=== PATIENT | female | born 1970 | race Caucasian/White ===

== ENCOUNTER 2017-05-04 13:24 | Emergency (ER) | payer OTHER ==
[~2017-05-04] VITALS: Ht 167.6 cm; Wt 123.4 kg
[~2017-05-04 13:24] MED LIST: COLACE100 MG PO; COZAAR25 MG PO; DICLOFENAC SODI75 MG PO; DICLOFENAC SODIUM; GLUCOPHAGE XR500 MG PO; HYDROCHLOROTH12.5 MG; HYDROCHLOROTHIA25 MG PO; MAGNESIUM OXID400 MG PO; METFORMIN HCL500 MG PO; PERCOCET 5-3251 EACH PO; TRAMADOL HCL50 MG PO
[2017-05-04] MEDS ORDERED: BUPROPION XL300 MG PO (13:46)
[2017-05-04] MEDS ORDERED: GLUCOPHAGE500 MG PO (13:47)
[2017-05-04] MEDS ORDERED: ACID REDUCER150 MG PO (13:47)
[2017-05-04] MEDS ORDERED: METOPROLOL TART25 MG PO (13:48)
[2017-05-04] MEDS ORDERED: VENTOLIN HFA18 GM INH (13:49)
[2017-05-04] MEDS ORDERED: TOPROL XL25 MG PO (15:18)
--- NOTE | 2017-05-05 07:16 | EKG ---
[facility] [address] [facility] [place] [address] Signed Normal sinus rhythm Nonspecific ST and T wave abnormality Abnormal ECG No previous ECGs available Confirmed by SUMMER POOL MD ([id number] on 05/05/2017 7:16:06 AM Electronically Signed By: SUMMER POOL MD 05/05/17 0716 PATIENT NAME: MARLY IRIZARRY Electrocardiogram DATE OF : 72 PHYSICIAN: SUMMER POOL MD REPORT #: [id number] REPORT IS CONFIDENTIAL AND NOT TO BE RELEASED WITHOUT AUTHORIZATION
== END 2017-05-04 16:46 | disposition home or self-care (01) ==
LOC: ED 13:24
DX: R00.2 Palpitations (principal); E87.6 Hypokalemia; I10 Essential (primary) hypertension; Z90.49 Acquired absence of other specified parts of digestive tract; Z88.0 Allergy status to penicillin; Z88.2 Allergy status to sulfonamides; Z79.899 Other long term (current) drug therapy; Z79.84 Long term (current) use of oral hypoglycemic drugs
CPT/HCPCS: 71020; 80053; 84484; 85025; 93005; 93010; 99284